=== PATIENT | female | born 1945 | race Caucasian/White ===

== ENCOUNTER 2018-02-04 12:20 | Emergency (ER) | payer MEDICARE, OTHER ==
[2018-02-04] MEDS ORDERED: Adenosine 6 MG/2 ML VIAL ONE ×2 (12:42→12:50)
[2018-02-04 13:12] LABS: #Basophils 0.1 thou/uL (0.0-0.2); #Eosinphils 0.2 thou/uL (0.0-0.7); #Lymphocytes 2.2 thou/uL (1.20-3.40); #Monocytes 0.7 thou/uL (0.11-0.59); #Neutrophils 4.7 thou/uL (1.40-6.50); %Basophils 0.7 % (0.0-1.0); %Eosinophils 2.2 % (0.0-10.0); %Lymphocytes 28.1 % (21.0-51.0); %Monocytes 8.4 % (0.0-10.0); %Neutrophils 60.6 % (42.0-75.0); Hemoglobin 14.3 g/dL (12.0-16.0); Mean Corpuscular HGB CONC 33.3 g/dL (32.0-36.0); Mean Corpuscular Volume 87.3 fL (78.0-98.0); Mean Platelet Volume 7.5 fL (7.4-10.4); Platelet Count 375 thou/uL (130-400); RBC Distribution Width 12.4 % (11.5-14.5); Red Blood Cell (RBC) Count 4.91 mill/uL (4.20-5.40); White Blood Cell (WBC) Count 7.8 thou/uL (4.8-10.8)
[2018-02-04 13:34] LABS: ALT (SGPT) 20 U/L (8-55); AST (SGOT) 26 U/L (5-34); Albumin 4.7 g/dL (3.4-4.8); Alkaline Phosphatase 82 U/L (40-150); Anion Gap 16 mmol/L (10-20); BUN (Urea Nitrogen) 13 mg/dL (9.8-20.1); Bilirubin, Total 0.4 mg/dL (0.2-1.2); Calc. Creatinine Clearance 0 mL/min (70-130); Calcium 10.8 mg/dL (7.8-10.44); Carbon Dioxide 23 mmol/L (23-31); Chloride 106 mmol/L (98-107); Estimated GFR-MDRD 50; Globulin 3.4 g/dL (2.4-3.5); Glucose 104 mg/dL (83-110); Magnesium 2.4 mg/dL (1.6-2.6); Potassium 4.4 mmol/L (3.5-5.1); Protein, Total 8.1 g/dL (6.0-8.3); Sodium 141 mmol/L (136-145)
[2018-02-04 13:37] LABS: CKMB 4.2 ng/mL (0-6.6); Troponin I Less than 0.010 ng/mL (< 0.028)
== END 2018-02-04 15:15 | disposition home or self-care (01) ==
LOC: ERS 12:20
DX: R00.2 Palpitations (principal); I48.91 Unspecified atrial fibrillation; Z79.899 Other long term (current) drug therapy
CPT/HCPCS: 80053; 82553; 83735; 84484; 85025; 93005; 96374; J0153

== ENCOUNTER 2018-02-08 15:17 | Outpatient (CLI) | payer MEDICARE, OTHER ==
[2018-02-08 16:06] LABS: Hemoglobin 12.5 g/dL (12.0-16.0); Mean Corpuscular HGB CONC 33.4 g/dL (32.0-36.0); Mean Corpuscular Hemoglobin 29.1 pg (27.0-31.0); Mean Corpuscular Volume 87.1 fL (78.0-98.0); Mean Platelet Volume 7.3 fL (7.4-10.4); Platelet Count 345 thou/uL (130-400); RBC Distribution Width 12.1 % (11.5-14.5); Red Blood Cell (RBC) Count 4.29 mill/uL (4.20-5.40); White Blood Cell (WBC) Count 6.1 thou/uL (4.8-10.8)
[2018-02-08 16:13] LABS: PTT 32.8 SEC (22.9-36.1); Prothrombin Time 13.6 SEC (12.0-14.7)
[2018-02-08 16:27] LABS: Anion Gap 14 mmol/L (10-20); BUN (Urea Nitrogen) 11 mg/dL (9.8-20.1); Calc. Creatinine Clearance 0 mL/min (70-130); Calcium 9.5 mg/dL (7.8-10.44); Carbon Dioxide 24 mmol/L (23-31); Chloride 106 mmol/L (98-107); Estimated GFR-MDRD 53; Glucose 103 mg/dL (83-110); Potassium 4.8 mmol/L (3.5-5.1); Sodium 139 mmol/L (136-145)
== END 2018-02-08 15:18 | disposition home or self-care (01) ==
LOC: LABBT 15:17
PROVIDERS: ATTEND Internal Medicine Cardiovascular Disease
DX: Z01.818 Encounter for other preprocedural examination (principal); I47.1 Supraventricular tachycardia
CPT/HCPCS: 80048; 85027; 85610; 85730; 93005; 93010

== ENCOUNTER → 2018-02-10 | Day surgery (SDC) | payer MEDICARE, OTHER ==
[~2018-02-10] MED LIST: Fentanyl 100 MCG/2 ML VIAL ONE; Heparin 10,000 UNITS/1 ML VIAL ONE; Isoproterenol 0.2 MG/1 ML AMP ONE; Lidocaine 1% PF 5 ML VIAL ONE; Meperidine HCl/PF 25 MG/ML VIAL ONE; PROPOFOL 200 MG/20 ML VIAL ONE; Propofol 1,000 MG/100 ML VIAL IV ONE
--- NOTE | 2018-02-10 19:00 | OP ---
DATE OF PROCEDURE: 02/10/2018 ELECTROPHYSIOLOGY STUDY REPORT REFERRING PHYSICIAN: Yadiel Bliss M.D. and Quinn Ho D.O. REASON FOR PROCEDURE: Ms. Moreno is a 72-year-old woman with history of persistent atrial fibrillation. There was two prior ablation including isolation, left atrial appendage. She has been on lifelong anticoagulation on Xarelto. She is here for EP study and ablation procedure. Hence, a recurrent narrow complex SVT is noted, which were adenosine terminable in the ER. We are here to evaluate possibility of AV annelise reentrant tachycardia. PROCEDURE: The patient received propofol by Anesthesia specialist. Left femoral venous area was prepped, draped and anesthetized with subcutaneous lidocaine and with other some guidance, two 8 Welsh short sheaths were introduced. Through this a Decapolar and Octapolar catheter was then inserted to right atrium, His bundle and right ventricle is at CS position. Pacing mapping and recording was performed in each location. Following findings were noted. The baseline cycle length was sinus rhythm at 928 milliseconds, CA 191. A QRS is 60 QT is 414 milliseconds, AH 144 milliseconds, HV 40 milliseconds. AV Wenckebach cycle was 340 milliseconds, retrograde Wenckebach cycle was 420 milliseconds. AV annelise ERP was 600/280 milliseconds. No definite dual AV annelise physiology was seen. VA conduction was concentric. A burst atrial pacing did not seem to induce SVT or atrial arrhythmias. At this point, isuprel was administered. Up to 4 mcg per minute was used. Burst atrial pacing around the Wenckebach and also single and dual atrial extrastimuli did not induce atrial reentrant arrhythmia. Spontaneous induction of atrial tachycardia was seen with cycle length at 360 milliseconds. The atrial tachycardia was showing septal to lateral CS activation. The old right atrial pacing revealed long post-pacing intervals from both CS 9-10 and 2-3. On the other hand, multiple locations were mapped in the right atrium and we were not able to find locations where early activation was obvious, also post-pacing intervals with a location in the right atrium was very long. This raised the possibility of upper left atrial arrhythmia. At this point, a decision was made to continue medical management and consider left atrial ablation if that fails. PLAN: 1. Continue metoprolol/p.r.n. flecainide. 2. Outpatient followup. [facility]
== END ==
LOC: CCL 10:50
PROVIDERS: ATTEND Internal Medicine Cardiovascular Disease
DX: I47.1 Supraventricular tachycardia (principal); I48.1 Persistent atrial fibrillation; E03.9 Hypothyroidism, unspecified; Z79.899 Other long term (current) drug therapy; Z79.01 Long term (current) use of anticoagulants; Z86.711 Personal history of pulmonary embolism; Z86.718 Personal history of other venous thrombosis and embolism; Z98.890 Other specified postprocedural states
CPT/HCPCS: 76942; 93620; 93623; 96374; C1730 ×2; C1769; J1644; J2001; J2175; J2704; J3010

== ENCOUNTER 2019-01-11 12:36 | Outpatient (CLI) | payer MEDICARE, OTHER ==
[~2019-01-11 12:36] MED LIST changes: -Fentanyl 100 MCG/2 ML VIAL ONE; +Gadobenate Dimeglumine 529 MG/1 ML (20ML VIAL) ONE; -Heparin 10,000 UNITS/1 ML VIAL ONE; +Iopamidol 300 61% 50 ML VIAL FS ONE; +Iopamidol 300 61% 50 ML VIAL ONE; -Isoproterenol 0.2 MG/1 ML AMP ONE; -Lidocaine 1% PF 5 ML VIAL ONE; -Meperidine HCl/PF 25 MG/ML VIAL ONE; -PROPOFOL 200 MG/20 ML VIAL ONE; -Propofol 1,000 MG/100 ML VIAL IV ONE
--- NOTE | 2019-01-11 15:25 | RAD ---
PROCEDURE RIGHT SHOULDER ARTHROGRAM: INDICATION: Post Gadolinium arthrogram MRI is ordered and the patient presents for arthrogram procedure. FINDINGS: Contrast solution premixed according to protocol containing Gadolinium and iodinated contrast was inj ected under fluoroscopic observation in the right shoulder joint. Contrast is seen in the subacromia l regions concerning for rotator cuff tear. See further characterization with post-Gadolinium MRI ex am. PROCEDURE NOTE: Anterior right shoulder prepped and draped in a sterile manner. Local anesthesia was administered wi th Lidocaine. A 22-gauge spinal needle was used to enter the shoulder joint under fluoroscopic eliel nce. Contrast then was injected under fluoroscopic observation. Postprocedure films were obtained i n internal and external rotation. POS: KIKI
--- NOTE | 2019-01-11 17:19 | MRI ---
MR ARTHROGRAM OF THE RIGHT SHOULDER: 01/11/19 INDICATION: History of recurrent right shoulder dislocation. Concern for labral tear. FINDINGS: There is a full thickness Bankart lesion involving the anterior inferior glenoid labrum extending fro m approximately the 4 through 5 o'clock position best seen on the ABER image 12 of series 11. There i s also a type 2b SLAP tear extending from approximately the 1 to 2 o'clock position through the 7 o' clock position. Glenohumeral articular surface is normal appearing. There is chronic appearing Hill-Sachs deformity involving the humeral head. There is a partial thickness articular surface tear that is high grade involving the posterior supras pinatus and anterior infraspinatus at the footprint with intertendinous delamination extending into t he anterior infraspinatus tendon. The tear measures approximately 0.6 x 1.1 cm in its greatest AP and mediolateral dimensions respectively. No muscular atrophy is evident. There is mild AC joint osteoarthrosis. Biceps tendon is located. IMPRESSION: 1. Findings of prior glenohumeral shoulder dislocation with a chronic appearing Hill-Sachs defor mity in the posterior superior humeral head and a Bankart lesion anterior inferior glenoid. 2. Type 2b SLAP tear. 3. Partial thickness high grade articular surface tear of the posterior supraspinatus and anteri or infraspinatus at the footprint with some intertendinous delamination to the anterior infraspinatus tendon up to the musculotendinous junction. POS: CET
== END 2019-01-11 12:37 | disposition home or self-care (01) ==
LOC: RAD 12:36
PROVIDERS: ATTEND Orthopaedic Surgery
DX: Z87.39 Personal history of other diseases of the musculoskeletal system and connective tissue (principal); M75.101 Unspecified rotator cuff tear or rupture of right shoulder, not specified as traumatic
CPT/HCPCS: 23350; A9577; J7050; Q9967

== ENCOUNTER 2019-01-18 14:19 | Outpatient (CLI) | payer MEDICARE, OTHER ==
[2019-01-18 16:00] LABS: #Basophils 0.1 thou/uL (0.0-0.2); #Eosinphils 0.7 thou/uL (0.0-0.7); #Lymphocytes 1.8 thou/uL (1.20-3.40); #Monocytes 0.5 thou/uL (0.11-0.59); #Neutrophils 3.3 thou/uL (1.40-6.50); %Basophils 0.8 % (0.0-1.0); %Eosinophils 11.4 % (0.0-10.0); %Lymphocytes 28.4 % (21.0-51.0); %Monocytes 8.1 % (0.0-10.0); %Neutrophils 51.2 % (42.0-75.0); Hemoglobin 12.3 g/dL (12.0-16.0); Mean Corpuscular HGB CONC 32.5 g/dL (32.0-36.0); Mean Corpuscular Hemoglobin 29.3 pg (27.0-31.0); Mean Corpuscular Volume 90.1 fL (78.0-98.0); Mean Platelet Volume 7.1 fL (7.4-10.4); Platelet Count 306 thou/uL (130-400); Red Blood Cell (RBC) Count 4.22 mill/uL (4.20-5.40); White Blood Cell (WBC) Count 6.4 thou/uL (4.8-10.8)
[2019-01-18 16:13] LABS: Anion Gap 12 mmol/L (10-20); BUN (Urea Nitrogen) 18 mg/dL (9.8-20.1); Calc. Creatinine Clearance 0 mL/min (70-130); Calcium 9.5 mg/dL (7.8-10.44); Carbon Dioxide 25 mmol/L (23-31); Chloride 107 mmol/L (98-107); Estimated GFR-MDRD 53; Glucose 98 mg/dL (83-110); Potassium 4.4 mmol/L (3.5-5.1); Sodium 140 mmol/L (136-145)
--- NOTE | 2019-01-19 16:48 | EKG ---
Test Reason : Blood Pressure : / mmHG Vent. Rate : 072 BPM Atrial Rate : 072 BPM P-R Int : 168 ms QRS Dur : 076 ms QT Int : 440 ms P-R-T Axes : 050 072 048 degrees QTc Int : 481 ms Normal sinus rhythm Low voltage QRS Cannot rule out Anterior infarct (cited on or before 18-JAN-2019) Abnormal ECG When compared with ECG of 08-FEB-2018 15:33, No significant change was found Confirmed by DR. Joel HERNANDEZ ([id number]) on 01/19/2019 4:47:47 PM Referred By: LILIAN Confirmed By:DR. Joel HERNANDEZ
== END 2019-01-18 14:20 | disposition home or self-care (01) ==
LOC: LABBT 14:19
PROVIDERS: ATTEND Orthopaedic Surgery
DX: Z01.818 Encounter for other preprocedural examination (principal); M24.411 Recurrent dislocation, right shoulder; M75.101 Unspecified rotator cuff tear or rupture of right shoulder, not specified as traumatic
CPT/HCPCS: 80048; 85025; 93005; 93010

== ENCOUNTER 2019-01-20 05:47 | Day surgery (SDC) | payer MEDICARE, OTHER ==
[2019-01-18 15:59] VITALS: BMI 24.3
[2019-01-20] MEDS ORDERED: Fentanyl 100 MCG/2 ML VIAL ONE (06:41)
[2019-01-20] MEDS ORDERED: Midazolam HCl 2 mg/2 ml Vial ONE (06:41)
[2019-01-20] MEDS ORDERED: Ketorolac Tromethamine 30 MG/ML VIAL IVP PRN (08:02)
[2019-01-20] MEDS ORDERED: Promethazine HCl 25 MG/ML VIAL IM PRN (08:02)
[2019-01-20] MEDS ORDERED: Ropivacaine 0.2% 550 ML 550 ML NERVE BLCK SCH (08:02)
[2019-01-20] MEDS ORDERED: Fentanyl 100 MCG/2 ML VIAL IV PRN (08:02)
[2019-01-20] MEDS ORDERED: HYDROcodone/Acetaminophen 5/325 mg Tablet PO PRN ×2 (08:02)
[2019-01-20] MEDS ORDERED: Ondansetron PF 4 MG/2 ML Vial IVP PRN (08:02)
[2019-01-20] MEDS ORDERED: Zolpidem Tartrate 5 MG TAB PO PRN (08:02)
[2019-01-20] MEDS ORDERED: traMADol HCl 50 MG TAB PO PRN ×2 (08:02)
[2019-01-20] MEDS ORDERED: Bupivacaine HCl 0.5%/Epinephrine 1:200,000/PF 30 ml Vial ONE ×2 (09:00→15:39)
--- NOTE | 2019-01-20 13:55 | OP ---
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 FUNCTIONAL MENTAL DISABILITY TEACHER: Terry Araujo PA-C ESTIMATED BLOOD LOSS: Less than 100. SPECIMENS: None. DRAINS: None. COMPLICATIONS: None. TITLE OF PROCEDURE: Open Bankart reconstruction. DESCRIPTION OF PROCEDURE: The patient was placed in a beach chair position. After receiving antibiotics, the arm was prepped and draped in a sterile fashion. I made a little bit more extensive deltopectoral approach than my usual Bankart repair. The deltopectoral interval was identified and found the conjoined tendon elevated. Subscapularis was identified. I was able to peel subscapularis from the capsule with some difficulty due to previous scarring. Once adequate good capsular exposure, capsule was opened. Shoulders were noted to be markedly unstable. Irrigation was performed. She had a large Bankart lesion going all the way down to the 6 o'clock position. I freshened up the Bankart lesion using curved quarter-inch osteotomes and rongeur to get a good bleeding base. I placed a three 3 mm SutureTaks through the anterior glenoid and then passed these sutures, a total of 4 sutures back through the capsule and tied these in a horizontal mattress-type fashion giving a very tight closure and obliteration of the pouch inferiorly. The capsule was then repaired anatomically with #1 Ethibond sutures, about 6 sutures were used here. The subscapularis was repaired back anatomically using #1 Ethibond sutures as well. The rotator interval was closed with Ethibond suture. Irrigation was performed again. Subcutaneous tissue was closed with 2-0 Vicryl. Skin was closed with shae. Sterile dressing applied. There were no complications. Job ID: [id number]
[2019-01-20] MEDS ORDERED: Ropivacaine 0.2% HCl/PF (40 MG/20 ML VIAL) ONE (15:39)
[2019-01-20] MEDS ORDERED: Rocuronium Bromide 10 MG/ML (10ML VIAL) ONE (16:03)
[2019-01-20] MEDS ORDERED: PROPOFOL 200 MG/20 ML VIAL ONE (16:03)
[2019-01-20] MEDS ORDERED: Ketorolac Tromethamine 30 MG/ML VIAL ONE (16:03)
[2019-01-20] MEDS ORDERED: Lidocaine 1% PF 5 ML VIAL ONE (16:03)
== END 2019-01-20 12:25 | disposition home or self-care (01) ==
LOC: SDC 05:47
PROVIDERS: ATTEND Orthopaedic Surgery
PROC: 0RQJ0ZZ Repair Right Shoulder Joint, Open Approach (ICD-10-PCS; principal; 2019-01-20)
DX: M25.311 Other instability, right shoulder (principal); I10 Essential (primary) hypertension; E07.9 Disorder of thyroid, unspecified; Z79.01 Long term (current) use of anticoagulants; Z79.899 Other long term (current) drug therapy; Z98.890 Other specified postprocedural states
CPT/HCPCS: 23455; A4306; C1713; J0670; J0690; J1885; J2001; J2250; J2704; J2795; J3010

== ENCOUNTER 2020-03-22 09:53 | Outpatient (CLI) | payer MEDICARE, OTHER ==
[2020-03-22] MEDS ORDERED: Iopamidol 370 76% 100 ML VIAL ONE (09:59)
--- NOTE | 2020-03-22 12:08 | CT ---
CTA Angio Chest W WO Con Limited exam. HISTORY: Atrial fibrillation COMPARISON: None. FINDINGS: A Watchman device is seen in the left atrial appendage. No contrast opacification of the left atrial appendage is seen on the postcontrast images. The remainder of the left atrium demonstrates good opacification without filling defects to suggest thrombus formation. The thoracic aorta is well opacified without aneurysm or dissection. No pleural or pericardial effusi ons are seen. No pneumothoraces, focal areas of consolidation, lung nodules or masses are seen. There are degenerative changes in the spine. IMPRESSION: No blood flow to the left atrial appendage following Watchman device placement.
== END 2020-03-22 09:54 | disposition home or self-care (01) ==
LOC: BICCT 09:53 → CT 09:54
PROVIDERS: ATTEND Internal Medicine Cardiovascular Disease
DX: I48.19 Other persistent atrial fibrillation (principal)
CPT/HCPCS: 36415; 71275; 80048; Q9967

== ENCOUNTER 2022-10-23 09:28 | Day surgery (SDC) | payer MEDICARE, OTHER ==
[2022-10-21 15:30] LABS: Hemoglobin 12.6 g/dL (12.0-15.5); Mean Corpuscular HGB CONC 31.7 g/dL (32.0-36.0); Mean Corpuscular Hemoglobin 27.8 pg (27.0-33.0); Mean Corpuscular Volume 87.7 fl (81.6-98.3); Mean Platelet Volume 9.8 fl (7.4-10.4); Platelet Count 404 10x3/uL (150-450); RBC Distribution Width 13.5 % (11.5-14.5); Red Blood Cell (RBC) Count 4.54 10x6/uL (3.90-5.03); White Blood Cell (WBC) Count 7.1 10x3/uL (3.5-10.5)
[2022-10-21 15:42] LABS: INR-International Normal Ratio 0.9; PTT 28.2 sec (22.0-33.0); Prothrombin Time 9.9 sec (9.5-12.1)
[2022-10-21 15:48] LABS: Anion Gap 15 mmol/L (10-20); BUN (Urea Nitrogen) 16 mg/dL (9.8-20.1); Calc. Creatinine Clearance 0 mL/min (70-130); Calcium 9.7 mg/dL (7.8-10.44); Carbon Dioxide 24 mmol/L (23-31); Chloride 107 mmol/L (98-107); Estimated GFR 62; Glucose 96 mg/dL (83-110); Sodium 141 mmol/L (136-145)
[2022-10-22 10:54] VITALS: BMI 23.3
[2022-10-23] MEDS ORDERED: PROPOFOL 200 MG/20 ML VIAL ONE (11:44)
[2022-10-23] MEDS ORDERED: Lidocaine 1% PF 5 ML VIAL ONE (11:44)
== END 2022-10-23 12:43 | disposition home or self-care (01) ==
LOC: SDC 09:28
PROVIDERS: ATTEND Internal Medicine Cardiovascular Disease
PROC: 5A2204Z Restoration of Cardiac Rhythm, Single (ICD-10-PCS; principal; 2022-10-23)
DX: I48.19 Other persistent atrial fibrillation (principal); I48.92 Unspecified atrial flutter; E03.9 Hypothyroidism, unspecified; Z86.711 Personal history of pulmonary embolism; Z86.718 Personal history of other venous thrombosis and embolism; Z79.82 Long term (current) use of aspirin; Z79.890 Hormone replacement therapy; Z79.899 Other long term (current) drug therapy; Z95.818 Presence of other cardiac implants and grafts
CPT/HCPCS: 80048; 85027; 85610; 85730; 92960; 93005; 93010; J2704

== ENCOUNTER 2023-06-11 23:50 | Emergency (ER) | payer MEDICARE, OTHER ==
[2023-06-12] MEDS ORDERED: Ketorolac Tromethamine 30 MG/ML VIAL ONE (00:09)
[2023-06-12] MEDS ORDERED: Dexamethasone 10 MG/ML VIAL ONE (00:09)
[2023-06-12] MEDS ORDERED: Diazepam 5 MG TAB ONE (01:14)
[2023-06-12 01:30] LABS: Bacteria/HPF None Seen HPF (None Seen); Bilirubin Negative (Negative); Blood, Urine Negative (Negative); CAUTI Indications for Culture Pelvic or flank pain; Calcium Oxalate Crystals 3+ HPF (None Seen); Clarity Clear (Clear); Glucose, Urine (Dipstick) Normal (Negative); Ketone, Urine Negative (Negative); Leukocyte Negative Leu/uL (Negative); Mucous/LPF Rare LPF (<2+); Nitrite Negative (Negative); Protein, Urine (Dipstick) Negative (Neg-Trace); RBC/HPF 0-3 HPF (0-3); Specific Gravity, Urine 1.011 (1.002-1.036); Squamous Epithelial None Seen HPF (0-3); Urobilinogen Normal mg/dL (Less than 2); WBC/HPF 0-3 HPF (0-3)
[2023-06-12 01:36] LABS: Urine Culture Reflex No No
[2023-06-12 02:14] LABS: #Basophils 0.1 thou/uL (0.0-0.2); #Eosinphils 0.3 thou/uL (0.0-0.7); #Monocytes 0.5 thou/uL (0.11-0.59); #Neutrophils 8.1 thou/uL (1.40-6.50); %Basophils 0.7 % (0.0-1.0); %Eosinophils 3.3 % (0.0-10.0); %Lymphocytes 7.2 % (21.0-51.0); %Monocytes 5.1 % (0.0-10.0); %Neutrophils 81.8 % (42.0-75.0); Hematocrit 33.6 % (36.0-47.0); Hemoglobin 10.5 g/dL (12.0-16.0); Mean Corpuscular HGB CONC 31.3 g/dL (32.0-36.0); Mean Corpuscular Hemoglobin 28.5 pg (27.0-31.0); Mean Corpuscular Volume 91.3 fl (78.0-98.0); Platelet Count 377 10x3/uL (130-400); Red Blood Cell (RBC) Count 3.68 mill/uL (4.20-5.40); White Blood Cell (WBC) Count 9.9 10x3/uL (4.8-10.8)
[2023-06-12 02:44] LABS: ALT (SGPT) 34 U/L (8-55); AST (SGOT) 40 U/L (5-34); Albumin 3.4 g/dL (3.4-4.8); Alkaline Phosphatase 81 U/L (40-110); Anion Gap 13 mmol/L (10-20); BUN (Urea Nitrogen) 11 mg/dL (9.8-20.1); Bilirubin, Total 0.4 mg/dL (0.2-1.2); Calc. Creatinine Clearance 0 mL/min (70-130); Calcium 8.8 mg/dL (7.8-10.44); Carbon Dioxide 22 mmol/L (23-31); Chloride 108 mmol/L (98-107); Estimated GFR 74; Globulin 2.9 g/dL (2.4-3.5); Glucose 110 mg/dL (83-110); Potassium 4.2 mmol/L (3.5-5.1); Protein, Total 6.3 g/dL (5.8-8.1); Sodium 139 mmol/L (136-145)
[2023-06-12 04:13] LABS: Troponin I Less than 0.010 ng/mL (< 0.028)
[2023-06-12] MEDS ORDERED: Ondansetron PF 4 MG/2 ML Vial ONE ×2 (04:30→07:18)
[2023-06-12] MEDS ORDERED: Morphine 4 MG/ML VIAL ONE ×3 (04:30→07:18)
[2023-06-12] MEDS ORDERED: Iopamidol-370 76% 500 ML MDV (1 ML CHARGE) ONE (14:21)
== END 2023-06-12 07:45 | disposition home or self-care (01) ==
LOC: ERS 23:50
DX: K52.9 Noninfective gastroenteritis and colitis, unspecified (principal)
CPT/HCPCS: 36415; 74177; 80053; 81001; 84484; 85025; 86140; 93005; 96372; 96374; 96375; 96376; J1100; J1885; J2270; J2405; Q9967